=== PATIENT | female | born 1965 | race Two or more races ===

== ENCOUNTER 2024-12-19 09:34 | Emergency (ER) | payer MEDICAID, SELFPAY ==
[2024-12-19 09:34] VITALS: BMI 34.3
[2024-12-19 09:57] VITALS: BP 127/73; PULSE 105; RESP 22; TEMP 37.2; O2SAT 96
--- NOTE | 2024-12-19 10:05 | XR_ITS ---
Examination: PA lateral chest 2 views TECHNIQUE: Upright PA lateral chest 2 views Date and time: December 19, 2024 10:12 AM Comparison December 28, 2015 INDICATIONS: Chest pain shortness of breath today. FINDINGS: Significant pneumonia right base with mild to moderate right pleural fluid Left lung clear Prominent osteopenia IMPRESSION: Significant pneumonia right base
--- NOTE | 2024-12-19 10:06 | PD.EDRME ---
Rapid Medical Screening Exam RME Arrival date/time: 12/19/24 09:34 59-year-old female with a history of type 2 diabetes, hypertension, pleural effusion presents to the emergency room with a chief complaint of shortness of breath x 2 days I have greeted and performed a focused initial assessment of this patient. A comprehensive ED assessment and evaluation of the patient, analysis of all test results, and completion of the medical decision making process will be conducted by additional ED providers. Chief Complaint: Shortness of Breath/Dyspnea Time Seen by Provider: 12/19/24 09:48 Vital signs: Vital Signs Temperature 99 F 12/19/24 09:57 Pulse Rate 105 H 12/19/24 09:57 Respiratory Rate 22 H 12/19/24 09:57 Blood Pressure 127/73 12/19/24 09:57 Pulse Oximetry (%) 96 12/19/24 09:57 Oxygen Delivery Method Room Air 12/19/24 09:57 Vital signs reviewed by provider: Yes
[2024-12-19 10:53] LABS: Basophils # (Auto) 0.1 Thou/mm3 (0.0-0.2); Basophils % (Auto) 1 % (0-2.5); Eosinophils # (Auto) 0.1 Thou/mm3 (0.0-0.5); Eosinophils % (Auto) 1 % (0-10); Hemoglobin 7.8 g/dL (12.0-16.0); Immature Granulocytes % (Auto) 1 % (0-0); Immature Granulocytes Auto 0.05 Thou/mm3 (0.00-0.00); Lymphocytes # (Auto) 2.6 Thou/mm3 (1.0-4.8); Lymphocytes % (Auto) 27 % (10-50); Mean Corpuscular HGB Conc 27.9 g/dl (31.0-37.0); Mean Corpuscular Hemoglobin 17.6 pg (25.0-35.0); Mean Corpuscular Volume 63 fL (80-100); Monocytes % (Auto) 10 % (0-12); Neutrophils % (Auto) 61 % (37-80); Nucleated Red Blood Cell % 0 /100 WBC (0); Platelet Count 145 Thou/mm3 (140-440); RDW Standard Deviation 49.4 fL (36.4-46.3); Red Blood Count 4.43 Miln/mm3 (4.00-5.20); White Blood Count 9.9 Thou/mm3 (3.6-11.0)
[2024-12-19 11:14] LABS: Alanine Aminotransferase 45 U/L (10-49); Albumin, Serum 3.6 gm/dL (3.4-4.8); Albumin/Globulin Ratio 0.8 (1.2-2.2); Alkaline Phosphatase 268 U/L (46-116); Anion Gap 9 (7-16); Aspartate Amino Transferase 58 U/L (0-34); BUN/Creatinine Ratio 15 Ratio (12-20); Bilirubin,Total 0.8 mg/dL (0.3-1.2); Blood Urea Nitrogen 15 mg/dL (9-23); Calcium 9.1 mg/dL (8.3-10.6); Calcium (Corrected) 9.4 mg/dL (8.5-10.1); Carbon Dioxide 22.7 mMol/L (20.0-31.0); Chloride 107 mMol/L (98-107); Estimated Creatinine Clearance 64.5 mL/min (>60); Globulin 4.3 gm/dL (2.3-3.5); Glucose 310 mg/dL (74-106); Magnesium 1.5 mg/dL (1.6-2.6); Osmolality,Calculated 290 (275-295); Potassium 4.4 mMol/L (3.4-5.1); Sodium 139 mMol/L (136-145); Total Protein 7.9 gm/dL (5.7-8.2); eGFR > 60 See Note
[2024-12-19 11:23] LABS: INR 1.1 (0.9-1.3); Partial Thromboplastin Time 25.1 Seconds (22.0-36.0); Prothrombin Time 11.7 Seconds (9.0-12.2)
--- NOTE | 2024-12-19 11:57 | PD.EDSOB ---
ED SOB =RME/HPI General Chief Complaint: Shortness of Breath/Dyspnea Stated Complaint: SOB/DIFF BREATHING, VOMITING, BLOODY NOSE Time Seen by Provider: 12/19/24 09:48 Arrival date/time: 12/19/24 09:34 RME / HPI RME / HPI Narrative: 59-year-old female with a history of type 2 diabetes, hypertension, pleural effusion presents to the emergency room with a chief complaint of shortness of breath x 2 days. Patient denies any fever. Denies any chest pain or coughing. Denies any other complaints no medications taken prior to arrival. Related Data Home Medications ?Medication ?Instructions ?Recorded ?Confirmed Levothyroxine * (SYNTHROID *) 175 mcg PO QDAY #0 tabs 12/28/15 glipizide 5 mg tablet 5 mg PO ACBR #0 tabs 12/28/15 lisinopril 40 mg tablet 40 ml PO QDAY #0 tabs 12/28/15 metformin 500 mg tablet 500 mg PO BIDAC #0 tabs 12/28/15 (Glucophage) omeprazole magnesium 20 mg 20 mg PO QDAY ##0 12/28/15 tablet,delayed release (Prilosec OTC) Previous Rx's ?Medication ?Instructions ?Recorded Hydrocodone/Acetaminophen * (NORCO 1 tab PO Q6H PRN pain #28 tabs 12/28/15 5/325 *) Sulfamethoxazole/Trimethoprim DS * 1 tab PO BID #14 tabs 12/28/15 (BACTRIM DS *) amoxicillin 875 mg-potassium 1 tab PO BID #14 tabs 12/19/24 clavulanate 125 mg tablet azithromycin 250 mg tablet See Rx Instructions PO .COMPLEX #6 12/19/24 (Zithromax Z-Giovanny) tabs ferrous sulfate, dried 159 mg (45 159 mg PO BID #60 tabs 12/19/24 mg iron) tablet,extended release Allergies Allergy/AdvReac Type Severity Reaction Status Date / Time NKA* Allergy Uncoded 12/19/24 09:36 Review of Systems Review of Systems Narrative Review of Systems: Review of system reviewed and within normal limits except mentioned in HPI ED Exam Narrative Physical exam: VITAL SIGNS: Reviewed. GENERAL APPEARANCE: Alert and interactive, follows commands, no acute distress, HEAD AND FACE: Non-traumatic. ENT: PERRL, pink conjunctivitis, eyelid no trauma, Mucous membrane moist. NECK: Supple, nontender, no nuchal rigidity. CHEST: No tenderness, no crepitus, no paradoxical movement, no retractions. LUNGS: Clear, well ventilated, symmetric, no rales, no wheezing, no ronchi, no stridor, good breath sounds bilaterally. HEART: Regular rate, regular rhythm, no murmur, no gallops. ABDOMEN: Soft, positive bowel sounds, nondistended, no guarding, nontender, no rebound, no masses, RECTAL: Deferred. GENITAL: Deferred. NEUROLOGICAL: Gross motor function intact sensory function intact, Appropriate for age. MUSCULOSKELETAL: low back nontender, full range of motion. EXTREMITIES: Nontender, full range of motion. SKIN: Color pink, dry, no rash, no lacerations, no abrasions, no contusions. LYMPHATICS: Deferred. Course Quality Measures none Orders Category Date Time Status XR chest 2V Stat Exams 12/19/24 10:05 Completed CBC Stat Lab 12/19/24 10:26 Completed Comprehensive Metabolic Panel Stat Lab 12/19/24 10:26 Completed Magnesium Stat Lab 12/19/24 10:26 Completed Partial Thromboplastin Time Stat Lab 12/19/24 10:26 Completed Prothrombin Time with INR Stat Lab 12/19/24 10:26 Completed Vital Signs Vital signs: Vital Signs Temperature 99 F 12/19/24 09:57 Pulse Rate 105 H 12/19/24 09:57 Respiratory Rate 22 H 12/19/24 09:57 Blood Pressure 127/73 12/19/24 09:57 Pulse Oximetry (%) 96 12/19/24 09:57 Oxygen Delivery Method Room Air 12/19/24 09:57 Shortness of Breath / Dyspnea MDM Narrative MDM Narrative:: 59-year-old female with a history of type 2 diabetes, hypertension, pleural effusion presents to the emergency room with a chief complaint of shortness of breath x 2 days. Patient denies any fever. Denies any chest pain or coughing. Denies any other complaints no medications taken prior to arrival. CBC showed no leukocytosis however patient's hemoglobin is noted to 7.8 hematocrit of 22. Patient's platelet is normal. There is of the labs unremarkable. Chest x-ray showed pneumonia otherwise unremarkable. Results discussed with the patient. Currently patient was noted to be 96% on room air. Patient appears nontoxic and hemodynamically stable. Patient discharged home and instructed to follow-up with primary care provider in 24 to 48 hours. Instructed to return to the emergency department immediately if worsening of symptoms Patient data External records reviewed:: None Clinical information provided by:: patient Social determinants that could affect healthcare access:: none Patient has the following chronic illnesses:: Hypertension diabetes mellitus, history of pleural effusion How is presenting disease/condition affected by chronic disease/condition?: exacerbated by Evaluation data The following diagnostics were reviewed and interpreted by me:: lab results and radiology exam(s) Lab and/or radiology exams considered but not ordered:: None Interpretation Summary: See results MDM Medications / Prescriptions Medications or Prescriptions considered but not ordered:: None Medication administrations:: None Consultations Consultation(s) initiated? (list below): No Diagnosis Shortness of Breath Differential Diagnosis: acute exacerbation of chronic obstructive airways disease, community acquired pneumonia and other (Cough, bronchitis,, pleural effusion) Most likely diagnosis given after review of the tests above:: Pneumonia, anemia Admission Indicated Admission indicated?: not indicated Admission Request Was there a request for admission?: No Disposition Plan Disposition Plan: Discharge Discharge Attestation Discharge Attestation: The patient was given an opportunity to ask questions and understood the discharge instructions. Discharge instructions specifically effects, indications for sooner follow up or return to the emergency department, and the expected course of current diagnosis. Patient condition: Stable Discharge Plan Plan Patient Disposition: HOME (Self Care) Discharge Disposition comment: Stable Prescriptions/Referrals Prescriptions/Med Rec: New ferrous sulfate, dried 159 mg (45 mg iron) tablet extended release 159 mg PO BID Qty: 60 0RF amoxicillin-pot clavulanate 875-125 mg tablet 1 tab PO BID Qty: 14 0RF azithromycin [Zithromax Z-Giovanny] 250 mg tablet See Rx Instructions .ROUTE .COMPLEX Qty: 6 0RF Rx Instructions: For 250 mg dose pack: take 500 mg today (day 1), then 250 mg for 4 days (days 2-5) No Action metformin [Glucophage] 500 MG tablet 500 mg PO BIDAC Qty: 0 lisinopril 40 MG tablet 40 ml PO QDAY Qty: 0 glipizide 5 MG tablet 5 mg PO ACBR Qty: 0 omeprazole magnesium [Prilosec OTC] 20 MG tablet,delayed release (DR/EC) 20 mg PO QDAY Qty: 0 Levothyroxine * (SYNTHROID *) 175 MCG tablet 175 mcg PO QDAY Qty: 0 Hydrocodone/Acetaminophen * (NORCO 5/325 *) 1 TAB tablet 1 tab PO Q6H PRN (Reason: pain) Qty: 28 0RF Sulfamethoxazole/Trimethoprim DS * (BACTRIM DS *) 1 TAB tablet 1 tab PO BID Qty: 14 0RF Referrals: No Primary/Family,Physician [Primary Care Provider] - In 1 week Problem List Clinical Impression: Pneumonia, Anemia Patient/Caregiver Discharge Instructions Discharge Activity: activity as tolerated Education Materials: Anemia Additional Instructions: Thank you for the opportunity for serving you today. You are stable for discharged . You are advised to: Follow-up with your PCP in 1 to 2 days Return to ED for worsening of symptoms Increase oral fluids Take medication as prescribed Print Language: Vietnamese Stand Alone Forms: [facility]iana Award Info., Patient Portal Info Letter PA/BENSON Supervising Physician PA/LIVESTOCK SPECULATOR Supervising Physician: MD Chandni
== END 2024-12-19 12:20 | disposition home or self-care (01) ==
PROVIDERS: Nurse Practitioner Family; Emergency Provider Emergency Medicine
DX: J18.9 Pneumonia, unspecified organism (principal); D64.9 Anemia, unspecified; E11.9 Type 2 diabetes mellitus without complications; I10 Essential (primary) hypertension
CPT/HCPCS: 36415; 71046; 80053; 83735; 85025; 85610; 85730; 99283